=== PATIENT | male | born 1935 | race Two or more races ===

== ENCOUNTER 2016-12-27 15:22 | Observation (INO) | payer MEDICARE ==
[2016-12-27 17:31] LABS: Glucose,Whole Blood 191 mg/dL (75-99)
[2016-12-27] MEDS ORDERED: HEPARIN SODIUM,PORCINE 10,000 UNIT/ML 1 ML VIAL IV ONE (19:10)
[2016-12-27] MEDS ORDERED: HEPARIN SODIUM,PORCINE 5,000 UNIT/ML 1 ML VIAL IV PRN (19:10)
[2016-12-27] MEDS ORDERED: SODIUM CHLORIDE 0.9% 1,000 ML IV SCH (20:00)
[2016-12-27 20:07] LABS: Glucose,Whole Blood 185 mg/dL (75-99)
[2016-12-27 20:16] LABS: Basophils # (A) 0.1 k/uL (0-0.2); Basophils % (A) 1 %; CHCM 33.3; Eosinophils # (A) 0.1 k/uL (0-0.7); Eosinophils % (A) 1 %; HCT 40.1 % (39.0-53.0); HGB 13.3 gm/dL (13.0-17.5); Luc # (Auto) 0.27; Luc % (Auto) 4; Lymphocytes # (A) 1.6 k/uL (1.0-4.8); Lymphocytes % (A) 23 %; MCH 31.1 pg (25.0-35.0); MCHC 33.2 g/dL (31.0-37.0); MCV 93.4 fL (80.0-100.0); Mean Platelet Volume 7.4; Monocytes # (A) 0.6 k/uL (0-1.0); Monocytes % (A) 8 %; Neutrophils # (A) 4.2 k/uL (1.3-7.7); Neutrophils % (A) 62 %; RBC 4.29 m/uL (4.30-5.90); RDW 13.3 % (11.5-15.5); WBC 6.7 k/uL (3.8-10.6); WBC (Perox) 7.15
[2016-12-27 20:20] LABS: INR 1.1 (<1.1); Partial Thromboplastin Time 24.1 sec (22.0-30.0); Prothrombin Time 11.1 sec (9.0-12.0)
[2016-12-27] MEDS: HEPARIN SODIUM,PORCINE/D5W PMX 25,000 UNIT in DEXTROSE/WATER 1 500ML.BAG IV SCH (20:41)
[2016-12-27] MEDS: INSULIN LISPRO (humaLOG) 300 UNIT/3 ML VIAL SQ SCH (21:16)
[2016-12-28] LABS: Hemoglobin A1C 8.8 % (4.2-6.1)
[2016-12-28 03:09] LABS: Basophils % (A) 1 %; CH 30.8; CHCM 33.3; Eosinophils # (A) 0.2 k/uL (0-0.7); Eosinophils % (A) 3 %; HCT 39.5 % (39.0-53.0); HDW 2.62; HGB 12.9 gm/dL (13.0-17.5); Luc # (Auto) 0.21; Luc % (Auto) 3; Lymphocytes # (A) 1.4 k/uL (1.0-4.8); Lymphocytes % (A) 23 %; MCH 30.3 pg (25.0-35.0); MCHC 32.7 g/dL (31.0-37.0); MCV 92.7 fL (80.0-100.0); Mean Platelet Volume 6.9; Monocytes # (A) 0.5 k/uL (0-1.0); Monocytes % (A) 7 %; Neutrophils # (A) 3.9 k/uL (1.3-7.7); Neutrophils % (A) 63 %; RBC 4.26 m/uL (4.30-5.90); RDW 13.3 % (11.5-15.5); WBC 6.2 k/uL (3.8-10.6); WBC (Perox) 6.07
[2016-12-28 03:20] LABS: INR 1.2 (<1.1); Prothrombin Time 12.3 sec (9.0-12.0)
[2016-12-28 03:22] LABS: Partial Thromboplastin Time 96.1 sec (22.0-30.0)
[2016-12-28 07:10] LABS: Glucose,Whole Blood 199 mg/dL (75-99)
[2016-12-28 07:24] VITALS: BP 129/72; PULSE 77; RESP 18; TEMP 97.1
[2016-12-28] MEDS ORDERED: PANTOPRAZOLE 40 MG TABLET PO SCH (07:30)
[2016-12-28] MEDS: INSULIN LISPRO (humaLOG) 300 UNIT/3 ML VIAL SQ SCH ×3 (07:34→17:48)
[2016-12-28] MEDS ORDERED: amLODIPine 5 MG TAB PO SCH (09:00)
[2016-12-28] MEDS: metFORMIN 500 MG TAB PO SCH ×2 (09:53→17:49)
[2016-12-28] MEDS ORDERED: RX INFO: IV CONTRAST WAS GIVEN 1 EACH MISC MISCELLANE PRN (10:35)
[2016-12-28 11:13] LABS: Glucose,Whole Blood 168 mg/dL (75-99)
[2016-12-28 11:52] LABS: INR 1.2 (<1.1)
[2016-12-28 12:11] LABS: Blood Urea Nitrogen 20 mg/dL (9-20); Non-African American GFR(MDRD) 56 (>60 ml/min/1.73 sqM)
--- NOTE | 2016-12-28 12:17 | P.GSCN ---
History of Present Illness History of present illness: [age] white male, history of pain and discomfort left calf past 1 week, patient went to [facility] on Tuesday and patient had a Lovenox and left zenobia and patient was sent home then he came back on Tuesday and had ultrasound done to review the CT from [facility] patient has no history of trauma or chest pain and was history of deep vein thrombosis no history of claudication or rest pain Medical history history of hypertension controlled with medication history of coronary artery diseaseof diabetes Surgical history patient had a cataract surgery done in the past no major surgery done Neck examination neck is supple no bruit appreciated Chest first and second sound normal good good entry both lungs Abdomen soft nontender femoral pulses are palpable posterior tibial palpable mild Tenderness no vascular compromise Impression is deep and thrombosis of the left leg we will review the CT from [facility] and patient has been scheduled for CT of the abdomen and pelvis Patient is on heparin which will be continue to review the films from [place] and follow with you thank you Past Medical History Past Medical History: Diabetes Mellitus, GERD/Reflux, Hypertension Additional Past Medical History / Comment(s): DIVERTICULOSIS, SKIN CANCER "MOLE "NECK(REMOVED", ARTHRITIS, MARCH 2016 SYNCOPE EPISODE D/T LOW BLOOD SUGAR, LOWER BACK PAIN History of Any Multi-Drug Resistant Organisms: None Reported Additional Past Surgical History / Comment(s): NOE CATARACTS, COLONOSCOPY/POLYP REMOVED WAS BENIGN Past Anesthesia/Blood Transfusion Reactions: No Reported Reaction Past Psychological History: No Psychological Hx Reported Additional Psychological History / Comment(s): PT LIVES AT HOME WITH HIS KERRI, IS INDEPENDANT. NO OUTSIDE SERVICES. 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 Smoking Status: Never smoker Past Alcohol Use History: None Reported Past Drug Use History: None Reported - Past Family History Father Family Medical History: Cancer Additional Family Medical History / Comment(s): LUNG CANCER. 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 Medications and Allergies Home Medications Medication Instructions Recorded Confirmed Type Apixaban [Eliquis] 10 mg PO Q12H 12/27/16 12/27/16 History Omeprazole 20 mg PO DAILY 12/27/16 12/27/16 History amLODIPine [Norvasc] 5 mg PO DAILY 12/27/16 12/27/16 History metFORMIN HCL [Glucophage] 500 mg PO BID 12/28/16 12/28/16 History Allergies Allergy/AdvReac Type Severity Reaction Status Date / Time TAPE Allergy Unknown Uncoded 12/27/16 18:47 Surgical - Exam Vital Signs Temp Pulse Resp BP Pulse Ox 98 F 87 16 149/72 96 12/27/16 16:54 12/27/16 16:54 12/27/16 16:54 12/27/16 16:54 12/27/16 16:54 Results - Labs 12/28/16 02:36 Abnormal Lab Results - Last 24 Hours (Table) 12/27/16 12/27/16 12/27/16 Range/Units 17:29 19:45 19:45 RBC 4.29 L (4.30-5.90) m/uL Hgb (13.0-17.5) gm/dL PT (9.0-12.0) sec APTT (22.0-30.0) sec POC Glucose (mg/dL) 191 H (75-99) mg/dL Hemoglobin A1c 8.8 H (4.2-6.1) % 12/27/16 12/28/16 12/28/16 Range/Units 19:57 02:36 02:36 RBC 4.26 L (4.30-5.90) m/uL Hgb 12.9 L (13.0-17.5) gm/dL PT 12.3 H (9.0-12.0) sec APTT 96.1 H* (22.0-30.0) sec POC Glucose (mg/dL) 185 H (75-99) mg/dL Hemoglobin A1c (4.2-6.1) % 12/28/16 12/28/16 12/28/16 Range/Units 06:56 10:18 11:08 RBC (4.30-5.90) m/uL Hgb (13.0-17.5) gm/dL PT (9.0-12.0) sec APTT 60.0 H (22.0-30.0) sec POC Glucose (mg/dL) 199 H 168 H (75-99) mg/dL Hemoglobin A1c (4.2-6.1) % Diabetes panel 12/27/16 Range/Units 19:45 Hemoglobin A1c 8.8 H (4.2-6.1) %
[2016-12-28] MEDS: HEPARIN SODIUM,PORCINE/D5W PMX 25,000 UNIT in DEXTROSE/WATER 1 500ML.BAG IV SCH (12:23)
--- NOTE | 2016-12-28 13:06 | HP ---
DATE OF ADMISSION: 12/27/2016 PRESENTING COMPLAINT: DVT in the left leg. HISTORY OF PRESENTING COMPLAINT: This is a pleasant 81-year-old patient of Dr. Denton transferred from [facility]. Patient's chronic stable medical conditions include diverticulosis, GERD, Type 2 diabetes mellitus, hypertension. The patient for a week noticed pain and swelling of the left leg pain, pain and swelling occurred after a trip which was 2 hours in the morning and 2 hours in the evening, found to have extensive DVT in the left leg [id number]. Patient initially placed on Eliquis at the other hospital. Family wanted high level of care and decided to come down here. Overnight the swelling has gone a little bit. The patient denies any shortness of breath. No prior history of DVT. Patient's daughter did have deep venous thrombosis. Patient is 81 years of age, no other siblings have had DVT. The patient otherwise in pretty good health and rather active. Though he has been less active this Winter he says. Denies injury to the extremity. REVIEW OF SYSTEMS: CONSTITUTIONAL: None. HEENT: Decreased hearing. RESPIRATORY: None. CARDIOVASCULAR: None. GASTROINTESTINAL: Heartburn. GENITOURINARY: None. MUSCULOSKELETAL: Some aches and pains and joints. Dermatological: None. HEMATOLOGIC: None. LYMPHATICS: None. PSYCHIATRY: None. NEUROLOGICAL: None. Extremities as above. Past medical history of diverticulosis, GERD, diabetes mellitus type 2, hypertension. PAST SURGICAL HISTORY: Bilateral cataracts. Colonoscopy. SOCIAL HISTORY: . A retired truck unloader. No smoking. No alcohol. FAMILY HISTORY: Mother had colon cancer, father lung cancer. HOME MEDICATIONS: 1. Metformin 500 mg b.i.d. 2. Norvasc 5 mg daily. 3. Omeprazole 20 mg a day. ALLERGIES: TAPE. On examination, temperature 97.1, pulse 77, respiration 18, blood pressure 129/72, pulse ox 93% on room air. GENERAL APPEARANCE: Well-built, body mass index of 34.7, lying in bed, comfortable. EYES: Pupils equal. Conjunctivae normal. HEENT: External appearance of nose and ears normal. Oral cavity normal. NECK: JVD not raised. Mass not palpable. RESPIRATORY: Effort normal. Lungs are clear. CARDIOVASCULAR: First and second sounds normal. No edema. ABDOMEN: Soft, nontender. Liver and spleen not palpable. LYMPHATIC: No lymph node palpable in neck or axillae. PSYCHIATRY: Alert and oriented x3. Mood and affect normal. NEUROLOGICAL: Pupils equal. Cranial nerves grossly intact. Power and sensation grossly intact. EXTREMITIES: Left leg thigh slightly worse when compared to the right leg. INVESTIGATIONS: White count 6.7, hemoglobin 12.9, platelets 217. Accu-Cheks are noted. ASSESSMENT: 1. Acute deep venous thrombosis above the knee in the left leg in a patient who had taken a car drive and less ambulatory. No obvious risk factors but given the nature of the extensive deep venous thrombosis we will rule out intraabdominal cause precipitating the scene. 2. Colonic diverticulosis, chronic. 3. Gastroesophageal reflux disease, chronic. 4. Type 2 diabetes mellitus, on oral hyperglycemic. 5. Essential hypertension. 6. Obesity; body mass index 34.7. 7. IV Heparin monitoring. PLAN: Patient is continued on IV heparin. Home medications are resumed. We will get a CT scan of the abdomen and pelvis to rule out any malignancies, not any proximal extension. Also consultation from hematology and vascular will be made. Care was discussed in detail with the patient's and daughter at the bedside. Since there is precipitating factor, we will give anticoagulation for 3 months and then following that, we will do serial Doppler ultrasounds to make sure there is no recurrence. I do not think there is a ( ) same because patient's age is 81 and would have expected this to manifest at a much earlier age. Questions were answered. We will also do DANNY stockings. All questions were answered.
--- NOTE | 2016-12-28 13:10 | P.PN ---
Progress Note - Text 81-year-old white male, history of swelling left lower extremity 1 week I have reviewed his ultrasound from [facility] patient has a DVT of the left superficial femoral vein and popliteal vein common femoral vein a liquid vein is patent and good flow noted patient is on heparin discussed with Dr.parkash Wylie is she was scheduled to have a CAT scan of the abdomen and pelvis left leg swelling is almost gone no vascular compromise noted if patient goes home then I will follow in my office in 2 weeks
[2016-12-28] MEDS: IOHEXOL 350 MG/ML 25 ML BOTTLE (ORAL USE) PO PRN ×2 (13:58→14:52)
--- NOTE | 2016-12-28 16:10 | CT ---
EXAMINATION TYPE: CT abdomen pelvis w con DATE OF EXAM: 12/28/2016 3:45 PM COMPARISON: NONE HISTORY: 81-year-old male states history of DVT in leg. Rule out possible malignancy. TECHNIQUE: Contiguous axial scanning of the abdomen and pelvis following administration of 100 ml Omn ipaque 300 IV contrast. Delayed images through the kidneys and coronal/sagittal reconstructions perf ormed. CT DLP: 1817 mGycm Automated exposure control for dose reduction was used. FINDINGS: Heart is normal size without pericardial effusion. There is a small hiatal hernia. Numerous small pulmonary nodules at the visualized lung bases measuring up to 4 mm. Many of these julián cified but some of the smaller nodules are not. No pleural effusion. Liver is mildly enlarged at 18 cm craniocaudal and shows diminished attenuation suggesting fatty infi ltration. Subcentimeter hypodense lesion near the gallbladder fossa is too small fractures CT charact erization and probably represents a cyst. No biliary ductal dilatation. Portal venous system is patent. Gallbladder, adrenal glands, kidneys, spleen, and pancreas appear within normal limits. No dilated small bowel, free fluid, or free air. No mesenteric or retroperitoneal lymphadenopathy. Normal appendix. Oral contrast has progressed to the hepatic flexure. There is moderate scattered st ool and left hemicolonic diverticulosis and no pericolonic inflammatory change seen. However, along the mid sigmoid, axial image 57 and coronal image 48, there is an ovoid fat attenuatin g circumscribed density measuring 3.2 cm. No suspicious soft tissue thickening seen. Mild circumferential bladder wall thickening. Prostate gland mildly enlarged at 4.7 cm wide with cent ral prostatic calcifications. No abnormal fluid collection in the pelvis or pelvic lymphadenopathy se en. Bones: Severe degenerative changes of the right hip and moderate at the left hip. Right-sided SI join t osteoarthrosis and multilevel degenerative disc disease in the lumbar spine. No osseous destructive process. IMPRESSION: 1. NUMEROUS PULMONARY NODULES AT THE LUNG BASES MEASURING UP TO 4 MM. MANY OF THESE ARE COMPATIBLE WI TH BENIGN CALCIFIED GRANULOMAS. HOWEVER, MANY OF THE SMALLER NODULES ARE NONCALCIFIED AND ARE INDETER MINATE. A FOLLOW-UP CT OF THE CHEST CAN SURVEY THE ENTIRE LUNGS AND DETERMINE APPROPRIATE FOLLOW-UP. 2. MILD HEPATOMEGALY AND HEPATIC STEATOSIS. CORRELATE WITH LFT's, LIPID PROFILE, AND PATIENT RISK FAC TORS. 3. LEFT HEMICOLONIC DIVERTICULOSIS. 4. A 3.2 CM CIRCUMSCRIBED FAT DENSITY LESION ALONG THE RIGHT LATERAL ASPECT OF THE MID SIGMOID COLON. A NEOPLASTIC ETIOLOGY IS CONSIDERED UNLIKELY. SOME TYPE OF INFLAMMATORY SEQUELA SUCH PRIOR EPISOD E OF EPIPLOIC APPENDAGITIS IS FAVORED. 4. MILD CIRCUMFERENTIAL BLADDER WALL THICKENING COULD REPRESENT CYSTITIS OR BLADDER WALL HYPERTROPHY. MILD PROSTATOMEGALY (4.7 CM WIDE).
[2016-12-28 17:09] LABS: Glucose,Whole Blood 181 mg/dL (75-99)
[2016-12-28] MEDS ORDERED: APIXABAN 5 MG TAB PO SCH (21:00)
--- NOTE | 2016-12-29 21:51 | DS ---
DATE OF ADMISSION: 12/27/2016 DATE OF DISCHARGE: 12/28/2016 FINAL DIAGNOSES: 1. Acute left leg deep venous thrombosis in the popliteal vein and superficial femoral from decreased ambulation. 2. Colonic diverticulosis, chronic. 3. Gastroesophageal reflux disease. 4. Type 2 diabetes mellitus, on oral hyperglycemics. 5. Essential hypertension. 6. Obesity, body mass index of 34.7. 7. IV heparin monitoring. HOSPITAL COURSE: This is a patient who presented from [facility]. Patient was found to have DVT and was transferred down here and was started on Eliquis. The family wanted to get an expert opinion. The patient was put on IV heparin. A CT scan of the abdomen and pelvis was rather nonspecific. I did tell the patient and family about getting colonoscopy after 3 months. Ultrasound was reviewed by Dr. Bailon, with whom I discussed the care. The clot was in the popliteal vein and superficial femoral, not extending into the iliacs or the defemoral vein. Patient being put back on Eliquis. The patient's swelling had already gone down. Care was discussed in detail with the patient and . Patient duration will be for three months as this is a provoked DVT. DISCHARGE MEDICATIONS: 1. Omeprazole 20 mg a day. 2. Norvasc 5 mg daily. 3. Eliquis 10 mg q.12 for 7 days. Then 5 mg b.i.d. for a total duration of 3 months. 4. Glucophage 500 mg p.o. b.i.d. 5. Bilateral DANNY stockings. Follow with Dr. Denton in 3 days. Follow up with Dr. Bailon in 2 weeks.
== END 2016-12-28 18:40 | disposition home or self-care (01) ==
LOC: 5ONC 16:51 → INTOOBSV 16:51
PROVIDERS: ADMIT Hospitalist; ATTEND Hospitalist
DX: I82.432 Acute embolism and thrombosis of left popliteal vein (principal); I82.412 Acute embolism and thrombosis of left femoral vein; E11.9 Type 2 diabetes mellitus without complications; E66.9 Obesity, unspecified; Z68.34 Body mass index [BMI] 34.0-34.9, adult; I10 Essential (primary) hypertension; K21.9 Gastro-esophageal reflux disease without esophagitis; K57.30 Diverticulosis of large intestine without perforation or abscess without bleeding; Z79.899 Other long term (current) drug therapy; Z79.84 Long term (current) use of oral hypoglycemic drugs; M19.90 Unspecified osteoarthritis, unspecified site
CPT/HCPCS: 83036; 82565; 84520; 85025 ×2; 85610 ×2; 85730 ×2; 74177; G0378 ×2; G0379; J1644 ×3; Q9967; 96374; 96376